=== PATIENT | male | born 1960 | race African-American/Black ===

== ENCOUNTER 2021-12-02 13:11 | Emergency (ER) | payer MEDICAID, OTHER ==
[~2021-12-02] VITALS: Ht 182.9 cm; Wt 82.0 kg
[2021-12-02] MEDS ORDERED: KETOROLAC 30MG/ML VIAL IV STA (13:42)
[2021-12-02] MEDS ORDERED: PHENOBARBITAL 60MG TABLET PO ONE (13:45)
[2021-12-02] MEDS ORDERED: SODIUM CHLORIDE 0.9% 1,000 ML IV ONE (13:45)
[2021-12-02] MEDS ORDERED: PHENYTOIN SODIUM 1,000 MG in SODIUM CHLORIDE 0.9% 100 ML IV ONE (13:45)
[2021-12-02 14:40] LABS: BASOPHILS % 0.1 % (0.0-2.0); EOSINOPHILS % 1.1 % (0.0-5.0); HEMOGLOBIN. 13.7 g/dL (14.0-18.0); LYMPHOCYTES % 15.6 % (20.0-50.0); MEAN CORPUSCULAR HEMOGLOBIN 22.3 pg (28.0-32.0); MEAN CORPUSCULAR VOLUME 69.9 fL (80.0-94.0); MEAN PLATELET VOLUME 8.6 fl (7.4-10.4); MONOCYTES % 5.4 % (2.0-8.0); NEUTROPHILS % 77.8 % (40.0-76.0); PLATELET 166 x1000/uL (130-400); RED BLOOD CELL COUNT 6.14 mill/uL (4.7-6.1); RED CELL DISTRIBUTION WIDTH 14.8 % (11.6-14.6)
[2021-12-02] MEDS ORDERED: PHENOBARBITAL 60MG TABLET PO NR ×2 (14:45→15:00)
[2021-12-02 14:47] LABS: CHLORIDE 102 mEq/L (98-107)
[2021-12-02 14:57] LABS: ETHANOL BLOOD < 10 mg/dL
[2021-12-02] MEDS ORDERED: PHENYTOIN SODIUM 1,000 MG in SODIUM CHLORIDE 0.9% 100 ML IV NR (15:00)
[2021-12-02] MEDS ORDERED: PHENOBARBITAL 30 MG TABLET PO NR (15:00)
[2021-12-02 15:02] LABS: PHENOBARBITAL < 2.1 ug/mL (15.0-40.0)
[2021-12-02 16:01] LABS: PLATELET ESTIMATE NORMAL
[2021-12-02 16:10] VITALS: BP 131/72
== END 2021-12-02 16:35 ==
LOC: ER 13:11
DX: G40.909 Epilepsy, unspecified, not intractable, without status epilepticus (principal); E11.9 Type 2 diabetes mellitus without complications; I10 Essential (primary) hypertension
CPT/HCPCS: 36415; 70450; 80053; 80184; 80185; 80320; 85025; 96361; 96365; 96375; 99291; J1165; J1885; J7030; J7050; G0480